=== PATIENT | male | born 1990 | race Caucasian/White ===

== ENCOUNTER 2017-01-31 12:58 | Day surgery (SDC) | payer OTHER ==
[~2017-01-31 12:58] MED LIST: METOCLOPRAMIDE HCL 5 MG/ML VIAL IV PRN; MORPHINE SULFATE 2 MG/ML DISP.SYRIN IV PRN; NORMAL SALINE 1,000 ML IV PRN; ONDANSETRON HCL/PF 2 MG/ML VIAL IV PRN; ceFAZolin SODIUM 2 GM in DEXTROSE 5 % IN WATER 50 ML IV PRN; oxyCODONE HCL/ACETAMINOPHEN 1 TAB TABLET PO PRN
[2017-01-31] MEDS ORDERED: NORMAL SALINE 1,000 ML IV ONE (13:29)
[2017-01-31] MEDS ORDERED: BUPIVACAINE HCL 50 ML VIAL IJ ONE ×2 (13:50)
[2017-01-31] MEDS ORDERED: BACITRACIN ZINC 30 APPL TUBE TP ONE (14:00)
--- NOTE | 2017-01-31 14:08 | OR ---
Operative Report - Dictated Report Narrative: Location: Main OR Anesthesia: MAC anesthesia Local .25% Marcain Surgeon: Dr. Marcum Preoperative diagnosis: Desired Sterilization Postoperative diagnosis: same Procedure: Vasectomy Bilateral Description: Consent obtained. Patient brought to the operating room and placed in the dorsal lithotomy position. Prepped and draped. MAC anesthesia provided. Timeout taken per protocol. Left vas identified and grasped with a towel piercing forceps. Small skin incision made using a scalpel. Vas grasped with ring and pulled per incision. Greater than 1 cm segment isolated, transected, fulgurated, tied with 2-0 silk. Vasal sheath infiltrated with quarter percent Marcaine, irrigation then carried out. The vas was returned to its normal anatomic location. Skin incision closed with interrupted 3-0 chromic and infiltrated with quarter percent Marcaine. Identical procedure performed on the opposite side in an identical fashion. Specimen: None EBL: 0 cc Condition: tolerated procedure
[2017-01-31 15:28] VITALS: BP 119/75
== END 2017-01-31 12:59 | disposition home or self-care (01) ==
LOC: AMB 12:58
PROVIDERS: ATTEND Urology
PROC: 0VBQ0ZZ Excision of Bilateral Vas Deferens, Open Approach (ICD-10-PCS; principal; 2017-01-31 14:45)
DX: Z30.2 Encounter for sterilization (principal); F17.200 Nicotine dependence, unspecified, uncomplicated; Z68.31 Body mass index [BMI] 31.0-31.9, adult

== ENCOUNTER 2017-04-28 19:46 | Emergency (ER) | payer OTHER ==
[2017-04-28] MEDS ORDERED: PENICILLIN V POTASSIUM 250 MG TABLET PO ONE (20:10)
[2017-04-28] MEDS ORDERED: HYDROcodone/ACETAMINOPHEN 1 EACH TABLET PO ONE ×2 (20:10)
[2017-04-28] MEDS ORDERED: HYDROcodone/ACETAMINOPHEN 1 EACH TABLET ONE (20:16)
[2017-04-28] MEDS ORDERED: PENICILLIN V POTASSIUM 250 MG TABLET ONE (20:16)
[2017-04-28 20:27] VITALS: BP 152/80
--- NOTE | 2017-04-28 20:32 | ERNOTE ---
ENT HPI Date of Service: 04/28/17 Presenting Symptoms: dental pain Time Seen by Provider: 04/28/17 19:59 Source: patient, RN notes reviewed Exam Limitations: no limitations - Immun/Allergies/Home Medications Immunizations: IMMUNIZATION HX Immunizations Up to Date No History of Influenza Vaccine No Hx Pneumococcal Vaccination No Allergies/Adverse Reactions: Allergies Allergy/AdvReac Type Severity Reaction Status Date / Time No Known Allergies Allergy Verified 04/28/17 19:55 Home Medications: HOME MEDICATIONS Penicillin V Potassium [Pen-Vee K] 500 mg PO Q8H #30 tab 04/28/17 [Last Taken Unknown] - History of Present Illness Narrative: Maggy is a 27-year-old male who presents to the emergency department for dental pain and facial swelling. He has had a tooth bothering him in his left upper jaw for several days. His facial swelling began yesterday. He has been taking ibuprofen for pain without much improvement. He reports having an appointment to see his dentist in 3 days. ENT Location: Present: dental, facial Prearrival Treatment: Present: over the counter meds Prior Treament: Reports: similar symptoms before. Denies: recently seen Review of Systems - Review of Systems Constitutional: Present: malaise. Absent: fever, chills EYE: Absent: eye pain, vision changes ENT: Absent: ear pain, nasal drainage, sore throat Respiratory: Absent: shortness of breath, cough Cardiology: Present: no symptoms reported Gastrointestinal/Abdominal: Absent: nausea, abdominal pain Genitourinary: Present: no symptoms reported Musculoskeletal: Absent: muscle pain, neck pain Skin: Absent: rash, lesions, change in color Neurological: Present: headache. Absent: dizziness/light-headedness Endocrine: Present: no symptoms reported Hematologic/Lymphatic: Present: no symptoms reported Psych: Present: no symptoms reported - Patient's Past Medical History Patient History - Medical: No pertinent hx Patient History - Cardiac/Respiratory: No pertinent hx Patient History - Cancer: No Hx of Cancer Patient History - Surgical Procedures: Other Patient History - Other: None - Family History Father Family History - Medical: No pertinent hx Family History - Cardiac/Respiratory: CVA/Stroke Family History - Cancer: No pertinent family hx Mother Family History - Medical: No pertinent hx Family History - Cardiac/Respiratory: No pertinent hx Family History - Cancer: No pertinent family hx - Social History Living Situations: home Abuse History: No History of abuse Psych History: No pertinent hx Smoking Status: Current every day smoker Have you smoked in the past 12 months: Yes Do you dip or chew tobacco: No Alcohol Use: rarely Drug Use: none - Immunizations Immunizations Up to Date: No Hx Pneumococcal Vaccination: No History of Influenza Vaccine: No Physical Exam - Physical Exam General Appearance: Present: wd/wn, alert, mild distress Head Exam: Present: swelling - Left maxillary region, tenderness - Left maxillary region Eye Exam: Normal inspection: bilateral Ears, Nose, Throat: Present: normal pharynx, other - Inflammation present in left upper gums, tenderness #14 - no defect noted but patient reports there is a hole between the teeth. Absent: abnormal TM (R), abnormal TM (L), sinus pain/ drainage Neck: Present: normal inspection, nontender, supple, full range of motion. Absent: lymphadenopathy (R), lymphadenopathy (L) Respiratory: Present: no respiratory distress, normal breath sounds, no accessory muscle use, lungs clear Cardiovascular/Chest: Present: regular rate, rhythm, no murmur Neurological Exam: Present: alert, oriented, normal mood/affect, no motor/ sensory deficits Skin Exam: Present: normal color, warm/dry ED Progress - Vital Signs Patient's Vital Signs:: I have reviewed the patient's vital signs. Vital Signs: Vital Signs 04/28/17 19:52 Temperature 36.9 C Pulse Rate 97 Respiratory 14 Rate Blood Pressure 153/85 O2 Sat by Pulse 100 Oximetry - Progress/Reassessment Chief Complaint: Dental Problem Progress:: Unchanged Departure Clinical Impression: Dental abscess - Departure Disposition: Home Follow Up Needed Condition: Stable Instructions: Dental Abscess, [id number] Additional Instructions: It is okay to continue ibuprofen for pain. Take 3 tablets or 600 mg every 6 hours as needed with food. See a dentist as soon as possible Prescriptions: Penicillin V Potassium [Pen-Vee K] 500 mg PO Q8H #30 tab
== END 2017-04-28 20:23 | disposition home or self-care (01) ==
LOC: ER 19:46
DX: K04.7 Periapical abscess without sinus (principal); F17.200 Nicotine dependence, unspecified, uncomplicated